=== PATIENT | female | born 1960 | race Caucasian/White ===

== ENCOUNTER → 2019-10-18 | Outpatient (CLI) | payer BC ==
[~2019-10-18] VITALS: Ht 177.8 cm; Wt 93.2 kg
[~2019-10-18] MED LIST: LIDOCAINE 1% INJ 20 ML 20 ML VIAL INJ ONE
--- NOTE | 2019-10-18 13:52 | Diagnostic Imaging Report ---
INDICATION: Thyroid nodules. Patient presents for ultrasound-guided biopsy. FINDINGS: Patient was brought to the procedure room, placed on the table in the supine position. Ultrasound imaging of the right and left neck was performed. Outside ultrasound performed on 10/08/2019 did describe a nodule along the posterior and inferior aspect of the right lobe of the thyroid. On today's scan, this appears to represent thyroid tissue and not a discrete nodule. Therefore, the right nodule will not be biopsied. The left neck was prepped and draped in the usual sterile fashion. A small amount of 1% lidocaine was utilized for local anesthesia. A total of four passes were made into the dominant solid left lobe thyroid nodule utilizing 25-gauge needles and fine-needle aspiration technique. Hemostasis was obtained using manual compression. Patient tolerated the procedure well and left the department in stable condition. IMPRESSION: 1. Successful ultrasound-guided fine-needle aspiration of the dominant left lobe thyroid nodule. Pathology results are currently pending. 2. No definite nodule along the inferior and posterior right lobe is seen on today's study. This is felt to most likely represent normal thyroid tissue. Therefore, biopsy of this region was not performed. Even so, continued sonographic follow-up could be obtained to confirm stability. Dictated by: Dictated on workstation # [id number]
== END ==
LOC: RAD 12:09
PROVIDERS: ATTEND Internal Medicine Endocrinology, Diabetes & Metabolism
DX: E04.1 Nontoxic single thyroid nodule (principal)
CPT/HCPCS: 88173; 88305